=== PATIENT | male | born 1980 | race Caucasian/White ===

== ENCOUNTER 2024-04-21 13:08 | Emergency (ER) | payer MEDICAID ==
[~2024-04-21] VITALS: Ht 180.3 cm; Wt 110.0 kg
[2024-04-21 13:58] VITALS: O2SAT 100
[2024-04-21] MEDS: ACETAMINOPHEN 500MG TABLET PO ONE (14:55)
[2024-04-21 15:02] VITALS: BP 122/76; PULSE 78; RESP 18; TEMP 36.94740; O2SAT 100
== END 2024-04-21 15:02 | disposition home or self-care (01) ==
LOC: ER 13:08
DX: M25.562 Pain in left knee (principal); W19.XXXA Unspecified fall, initial encounter; Y93.89 Activity, other specified; Y92.89 Other specified places as the place of occurrence of the external cause; Y99.8 Other external cause status
CPT/HCPCS: 73562; 73630; 99284